=== PATIENT | male | born 1960 | race Caucasian/White ===

== ENCOUNTER 2022-07-07 07:48 | Outpatient (CLI) | payer OTHER, SELFPAY ==
[2022-07-07 08:20] LABS: Basophils Percent Auto 0.8 % (0.2-1.2); Eosinophils Absolute Auto 0.1 K/mm3 (0-0.3); Eosinophils Percent Auto 1.8 % (0-4.4); Hematocrit 42.8 % (42.0-52.0); Immature Granulocyte Absolute 0.03 K/mm3 (0.00-0.031); Immature Granulocyte Percent A 0.6 % (0-0.5); Lymphocytes Absolute Auto 1.43 K/mm3 (0.9-3.2); Lymphocytes Percent Auto 28.7 % (18.3-44.2); Mean Corpuscular HGB Conc 32.7 g/dl (32-36); Mean Corpuscular Volume 97.9 fl (80-100); Monocytes Absolute Auto 0.6 K/mm3 (0.1-0.6); Neutrophils Absolute Auto 2.8 K/mm3 (1.3-6.7); Neutrophils Percent Auto 56.1 % (45.5-73.1); Platelet Count Result 253 k/mm3 (150-375); Red Blood Count 4.37 M/mm3 (4.6-6.20); Red Cell Distribution Width 13.6 % (11.5-14.5)
[2022-07-07 08:33] LABS: Alanine Aminotransferase 22 U/L (6-50); Albumin Level 4.1 g/dL (3.5-5.1); Alkaline Phosphatase 65 U/L (38-126); Anion Gap 6 mmol/L (8-16); Aspartate Amino Transferase 22 U/L (17-59); Bilirubin,Total 0.4 mg/dL (0.2-1.3); Blood Urea Nitrogen 21 mg/dL (9-20); Calcium 8.4 mg/dL (8.4-10.2); Carbon Dioxide 26 mmol/L (22-30); Chloride 105 mmol/L (98-107); Cholesterol 175 mg/dL (0-200); Estimated Glomerular Filt Rate > 60; Glucose 87 mg/dL (65-110); HDL Direct 53 mg/dL; Magnesium 2.1 mg/dL (1.6-2.3); Potassium 4.4 mmol/L (3.4-5.0); Sodium 137 mmol/L (137-145); Triglycerides 44 mg/dL (<150)
[2022-07-07 08:44] LABS: LDL Cholesterol Direct 93 mg/dL
[2022-07-07 09:01] LABS: Prostate Specific Antigen 0.8 ng/mL (< OR = 4.0)
== END 2022-07-07 07:49 | disposition home or self-care (01) ==
PROVIDERS: PCP Internal Medicine; Visit Provider Internal Medicine
DX: K21.9 Gastro-esophageal reflux disease without esophagitis (principal); Z13.6 Encounter for screening for cardiovascular disorders; N42.9 Disorder of prostate, unspecified
CPT/HCPCS: 36415; 80053; 80061; 82607; 83735; 84153; 85025

== ENCOUNTER 2023-07-04 11:02 | Outpatient (CLI) | payer OTHER, SELFPAY ==
[2023-07-04 11:46] LABS: Basophils Percent Auto 0.8 % (0.2-1.2); Eosinophils Absolute Auto 0.1 K/mm3 (0-0.3); Eosinophils Percent Auto 1.1 % (0-4.4); Hematocrit 44.5 % (42.0-52.0); Hemoglobin 13.8 g/dL (14.0-18.0); Immature Granulocyte Absolute 0.02 K/mm3 (0.00-0.031); Immature Granulocyte Percent A 0.4 % (0-0.5); Lymphocytes Absolute Auto 1.37 K/mm3 (0.9-3.2); Lymphocytes Percent Auto 25.7 % (18.3-44.2); Mean Corpuscular Hemoglobin 29.3 pg (26-34); Mean Corpuscular Volume 94.5 fl (80-100); Mean Platelet Volume 10.2 fl (7.4-10.4); Monocytes Absolute Auto 0.6 K/mm3 (0.1-0.6); Monocytes Percent Auto 10.9 % (2.6-8.5); Neutrophils Absolute Auto 3.3 K/mm3 (1.3-6.7); Neutrophils Percent Auto 61.1 % (45.5-73.1); Platelet Count Result 296 k/mm3 (150-375); Red Blood Count 4.71 M/mm3 (4.6-6.20); Red Cell Distribution Width 14.3 % (11.5-14.5); White Blood Count 5.3 K/mm3 (4.5-10.0)
[2023-07-04 11:58] LABS: Alanine Aminotransferase 19 U/L (6-50); Albumin Level 4.1 g/dL (3.5-5.1); Alkaline Phosphatase 65 U/L (38-126); Anion Gap 6 mmol/L (4-12); Aspartate Amino Transferase 20 U/L (17-59); Bilirubin,Total 0.4 mg/dL (0.2-1.3); Blood Urea Nitrogen 19 mg/dL (9-20); Calcium 9.1 mg/dL (8.4-10.2); Carbon Dioxide 26 mmol/L (22-30); Chloride 105 mmol/L (98-107); Cholesterol 189 mg/dL (0-200); Estimated Glomerular Filt Rate > 60; Glucose 97 mg/dL (65-110); HDL Direct 54 mg/dL; Magnesium 2.2 mg/dL (1.6-2.3); Potassium 4.4 mmol/L (3.4-5.0); Sodium 137 mmol/L (137-145); Triglycerides 71 mg/dL (<150)
[2023-07-04 12:09] LABS: LDL Cholesterol Direct 104 mg/dL
[2023-07-04 12:24] LABS: Prostate Specific Antigen 0.9 ng/mL (< OR = 4.0)
[2023-07-04 12:34] LABS: Free T4 Free Thyroxine 1.22 ng/mL (0.78-2.19)
== END 2023-07-04 11:03 | disposition home or self-care (01) ==
LOC: ANHLAB 11:04
PROVIDERS: PCP Internal Medicine; Visit Provider Internal Medicine
DX: N42.9 Disorder of prostate, unspecified (principal); K21.9 Gastro-esophageal reflux disease without esophagitis; I10 Essential (primary) hypertension
CPT/HCPCS: 36415; 80053; 80061; 82607; 83735; 84153; 84439; 84443; 85025

== ENCOUNTER 2024-07-11 08:36 | Outpatient (CLI) | payer MEDICARE, SELFPAY ==
--- OUTSIDE RECORDS SUMMARY | 2024-07-11 09:13 | XMS_ITS | Continuity of Care Document ---
Author Organization [facility] Address [address] [place] [address] Phone Care Team Providers Care Asset Protection Officer Name Role Phone Honorio Lowe Unavailable Unavailable Procedures Procedure Date Eye Exam & Treatment Refraction Progressive Lens, Hi Index Frames Deluxe Tint Photochromatic, Hi Index 0 Medical Tax Office/outpatient Visit, Est Visual Field Examination(s) Eye Exam & Treatment Refraction Optic Nerve Topography Optic Nerve Topography Office/outpatient Visit, Est Fundus Photography W/ Report Visual Field Examination(s) Eye Exam & Treatment Refraction Advance Directives Directive Yes / No Effective Date File Name No Information Encounters Encounter Description Practice Location Reason(s) For Visit Diagnoses Date Provider Providers Copied on Encounter [facility], [id number] [place] [address] [address], [place], [place], [id number], [place] tel:[phone] SEC [facility] No Information 0 Mynor Olmedo. [address] , [address], [place], [address], [place]. tel:[phone] [facility], [address], [place], [place], [id number], [place] tel:[phone] SEC [facility] No Information Al-2 3-201 0 [facility] . [address], [address], [place], [place], [id number], [place]. tel:[phone] Referring Provider: Honorio Russell [address] [place], [place] [address]ate Center [address], [place], [place], [facility]. tel:[phone] sulting Provider: Hosea Valverde, [address] [place], [place] [address]ate Ctr, [place], [place], [facility]. tel:[phone] Office/outpat ient Visit, [facility], [address] [place] [address] [address], [place], [place], [id number], [place] tel:[phone] SEC [facility] No Information Bora-1 0-200 9 Mynor Olmedo. [address] [place] [address] , [address], [place], [place], [facility], [place]. tel:[phone] [facility], [address] [place] [address] [address], [place], [place], [id number], [place] tel:[phone] [facility] [place] No Information Dec-0 4-200 8 Mynor Olmedo. [address] [place] [address] , [address], [place], [place], [facility], [place]. tel:[phone] Referring Provider: Honorio Russell, [address] [place], [place] [address], [place], [place], [facility]. tel:[phone] [facility], [address] [place] [address] [address], [place], [place], [id number], [place] tel:[phone] [facility] No Information Bora-0 9-200 8 Mynor Olmedo. [address] [place] [address] , [address], [place], [place], [facility], [place]. tel:[phone] [facility], [address] [place] [address] [address], [place], [place], [id number], [place] tel:[phone] [facility] [place] No Information Apr-1 1-200 8 Mynor Olmedo. [facility] , [address], [place], [place], [facility], . tel:[phone] Referring Provider: Mason [facility] [address], [place], [facility]. tel:[phone] Office/outpat ient Visit, [facility], [address] [place] [address] [address], [place], [place], [id number], tel:[phone] [facility] [place] No Information Dec-0 3-200 7 Mynor Olmedo. [address] [place], [place] [address]ate Carley Shanks, [address], [place], [place], [facility], . tel:[phone] Referring Provider: Honor[facility] Russell, [facility] [address], [place], [place], [facility]. tel:[phone] [facility], [address] [place] [address] [address], [place], [place], [address] [place] [address], tel:[phone] [facility] [place] No Information Mar-2 9-200 7 Mynor Olmedo. [facility] [address], [place], [facility], . tel:[phone] Referring Provider: [facility] Russell [facility] [address], [place], [facility]. tel:[phone] [facility], [address] [place] [address] [address], [place], [place], [id number], tel:[phone] [facility] No Information Mar-0 9-200 7 Mynor Olmedo. [facility] [address], [place], [place], [facility], . tel:[phone] Family History Family Member Type Diagnosis Age At Onset No Information Payers Payer name Insurance type Covered alliance party ID Authoriza tion(s) No Information Social History Type Description Quantity Date Captured Comments Sex Male Smoking Status No Information Chief Complaint And Reason For Visit No Information Reason For Referral Reason For Referral No Information History Of Present Illness Encounter Date Complaint History Of Prese nt Illness No Information Functional Status Date Functional Assessmen t No Information Instructions Date Instruction Additional Infor mation No Information Assessments Type Assessment Date No Information Patient Care Teams Name Effective Dates (start - stop) Status Members No Information
--- OUTSIDE RECORDS SUMMARY | 2024-07-11 09:13 | XMS_ITS | Data Portability ---
Author Organization [place] - [facility], Main Office Address [address] [place] [address] Assessment No assessment recorded. Plan of Treatment Reminders Order Date Submit Date Provider Last Modified By Organization Details Last Modified Time Details Appointments None recorded. Lab PSA, serum or plasma 025 025 [facility], [address], [address], 5 10:32:55 vitamin B12, serum 025 025 [facility], [address], [address], 5 10:31:54 magnesium , serum or plasma 025 025 [facility], [address], [address], 5 10:31:54 CBC w/ auto diff 025 025 [facility], [address], [address], 5 10:32:58 T4, free, serum 025 025 [facility], [address], [address], 5 10:32:54 TSH, serum or plasma 025 025 [facility], [address], [address], 5 10:31:53 lipid panel, serum 025 025 [facility], [address], [address], 5 10:32:58 CMP, serum or plasma 025 025 [facility], [address], [address], 5 10:31:55 PSA, serum or plasma 024 024 [id number] [facility], [address], [address], 4 16:04:02 magnesium , serum or plasma 024 024 [id number] [facility], [address], [address], 4 16:04:02 vitamin B12, serum 024 024 [facility], [address], [address], 4 16:16:41 CBC w/ auto diff 024 024 [facility], [address], [address], 4 16:16:41 CMP, serum or plasma 024 024 [facility], [address], [address], 4 16:08:28 lipid panel, serum 024 024 [facility], [address], [address], 4 16:16:41 TSH, serum or plasma 024 024 [facility], [address], [address], 4 16:16:41 T4, free, serum 024 024 [id number] [facility], [address], [address], 4 16:04:01 lipid panel, serum 023 023 [facility], [address], [address], 3 10:57:01 CMP, serum or plasma 023 023 [facility], [address], [address], 3 13:48:13 PSA, serum or plasma 023 023 [id number] [facility], [address], [address], 3 17:43:50 CBC w/ auto diff 023 023 [id number] [facility], [facility] [address], [address], 3 17:43:50 vitamin B12, serum 023 023 [id number] [facility], [address], [address], 3 17:43:50 magnesium , serum or plasma 023 023 [id number] [facility], [facility] [address], [address], 17:43:50 Referral None recorded. Procedures None recorded. Surgeries None recorded. Imaging None recorded. Medication Orders None recorded. Patient TargetsNo targets recorded. Patient Instructions Encounter Date Encounter Id Patient Instructions Last Modified By Organization Details Last Modified Time 07/05/2022 [id number] risk assessment* Not availabl e 07/05/2022 10:55:56 INFLUENZA VACCIN E TD/TDAP Recommended today, patient declined Ordered P atient will get at local pharmacy/health department PNEUMONIA VACCINE Ordered Recommende d today, patient declined Patient will get at local pharmacy/health department Recomme nded at age 64 SHINGLES Ordered Recommende d today, patient declined Patient will get at local pharmacy/health department PSA Ordered No screening necessary patient is up to date COLORECTAL SCREENING DEPRESSION SCREENING Negative BMI Overweight continue your current weight loss efforts try to lose 5% of your body weight try to lose 10% of your body weight NUTRITION Heart Healthy Diet PHYSICAL ACTIVITY Need more exercise/physical activity ALCOHOL USE No alcohol use Occasional/Soc ial Use TOBACCO USE non smoker LUNG CANCER SCREENING Non Smoker-not indicated SEXUALLY ACTIVE HEPATITIS C SCREENING Not indicated GLUCOSE SCREENING LIPID SCREENING [email or web address] Not available 07/05/2022 10:43:47 Wellness visit follow-up in risk assessment stable. Follow-up for GERD clinically doing well. Will check blood work consisting of CBC, CMP, lipid, B12, magnesium and PSA. Continue on current Rx recheck back one year [email or web address] Not available 07/05/2022 10:55:13 07/04/2023 [id number] Follow-up hypertension, GERD, anterior ventral hernia of the abdominal wall and obesity class one. All clinically stable. Will continue on current Rx check blood work consisting of CBC, CMP, lipid, thyroid and PSA. recheck blood pressure in one week. May need add medication help control this. Continue on current Rx follow-up in six months. Next Appt: 6 Months Approximate Date: 12/31/2023 Portions of the record may have been created with voice recognition software. Occasional wrong-word or s ound-a-like substitutions may have occurred due to the inherent limitations of voice recognition software. Read the chart carefully and recognize, using context, where substitutions have occurred. [email or web address] Not available 07/04/2023 10:38:49 07/09/2024 [id number] Follow-up essential hypertension, GERD, ventral hernia and obesity class one all clinically stable. Continue on current medications check blood work in the form of CBC, CMP, lipid, thyroid, B12, magnesium level and PSA. Continue on current Rx follow-up in six months Follow Up: 6 Months Approximate Date: 01/05/2025 Portions of record are template driven. When necessary additional context will be provided. Additionally some portions have been created with voice recognition software. Occasional wrong-word or s ound-a-like substitutions may have occurred due to the inherent limitations of voice recognition software. Read the chart carefully and recognize, using context, where substitutions may have occurred. Created: Gama George M.D. 07.09.2024 09:31 AM [email or web address] Not available 07/09/2024 10:31:37 Reason for Referral None Reported. Results Created Date Observation Date Name Description Value Unit Range Abnormal Flag Note LastModifiedBy Organization Detail LastModifiedTime 01/26/2001/25/2023 COLOG UARD cologuard result reportable NEGATI VE negati ve normal NEGAT RADHA TEST RESUL T. A negat radha Colog uard resul t indic ates a low likel ihood that a color ectal cance r (CRC) or advan aline adeno ma (nora omato us polyp s with more advan aline pre-m align ant featu res) is prese nt. The chanc e that a perso n with a negat radha Colog uard test has a color ectal cance r is less than 1 in 1500 (nega tive predi ctive value >99.9 %) or has an advan aline adeno ma is less than 5.3% (nega tive predi ctive value 94.7% ). These data are based on a prosp ectiv e cross -sect ional study of 10,00 0 indiv idual s at [facility] risk for color ectal cance r who were scree salvatore with both Colog uard and colon oscop y. (Cary Abdalla et al, N Engl J Med 2014; 370(1 4):12 86-12 97) The indu l value (refe rence range ) for this assay is negat radha. COLOG UARD RE-SC REENI NG RECOM MENDA TION: Perio dic color ectal cance r scree jas is an impor tant part of preve ntive healt hcare for asymp tomat ic indiv idual s at [facility] risk for color ectal cance r. Follo wing a negat radha Colog uard resul t, the Ameri can Cance r Socie ty and U.S. Multi -Soci ety Task Force scree jas guide lines recom mend a Colog uard re-sc reeni ng inter alek of 3 years . Refer ences : Ameri can Cance r Socie ty Guide line for Color ectal Cance r Scree jas: https ://oswaldo brice.can cer.o rg/ca ncer/ colon -rect al-ca ncer/ detec tion- diagn osis- stagi ng/ac s-rec ommen datio ns.ht ml.; Spencer ZULETA, Aubrie POLANCO, Jerson MUÑOZ, Color ectal Cance r Scree jas: Recom menda tions for Physi cians and Patie nts from the U.S. Multi -Soci ety Task Force on Color ectal Cance r Scree jas , Am Kena ortega y 2017; 112:1 016-1 030. TEST DESCR IPTIO N: [place] site algor ithmi c bhavya sis of stool DNA-b iosachin bustos with hemog lobin immun oassa y. Quant itati ve value s of indiv idual bioma rkers are not repor table and are not assoc iated with indiv idual bioma rker resul t refer ence range s. Colog uard is inten ded for color ectal cance r scree jas of adult s of eithe r sex, 45 years or older , who are at [facility] for color ectal cance r (CRC) . Colog uard has been appro arielle for use by the U.S. FDA. The perfo rmanc e of Colog uard was estab lishe d in a cross secti onal study of [facility] adult s aged 50-84 . Colog uard perfo rmanc e in patie nts ages 45 to 49 years was estim ated by sub-g roup bhavya sis of near- age group s. Colon oscop ies perfo rmed for a posit radha resul t may find as the most clini quentin signi fican t lesio n: color ectal cance r [4.0% ], advan aline adeno ma (incl uding sessi le mellissa nayeli polyp s great er than or equal to 1cm diame ter) [20%] or non- advan aline adeno ma [31%] ; or no color ectal neopl sammy [45%] . These estim ates are deriv ed from a prosp ectiv e cross -sect ional scree jas study of 0 indiv idual s at [facility] risk for color ectal cance r who were scree salvatore with both Colog uard and colon oscop y. (Cary Abdalla et al, N Engl J Med 2014; 370(1 4):12 86-12 97.) Colog uard may produ ce a false negat radha or false posit radha resul t (no color ectal cance r or preca ncero us polyp prese nt at colon oscop y follo w up). A negat radha Colog uard test resul t does not guara ntee the absen ce of CRC or advan aline adeno ma (pre- cance r). The curre nt Colog uard scree jas inter alek is every 3 years . (Amer ican Cance r Socie ty and U.S. Multi -Soci ety Task Force ). Colog uard perfo rmanc e data in a 0 patie nt pivot al study using colon oscop y as the refer ence metho d can be acces sed at the follo wing locat ion: www.e xactl abs.c om/re christofer . Addit ional descr iptio n of the Colog uard test proce ss, warni ngs and preca ution s can be found at www.c darnell gama.c om. Not Available [facility] (Cologuard Orders Only) [address], [place], [address], 02/01/2023 09:59:04 Result Notes None recorded. Problems Name Problem SNOMED Code Status Onset Date Resolution Date Notes Provider Name and Address Organization Details Recorded Time Gastroesop hageal reflux disease 837329307 Active Not Available [facility] 3 14:49:34 Dysphagia 42589796 Active Not Available [facility] 3 14:49:34 Hernia of anterior abdominal wall 181973595 Active 2021 Not Available [facility] 3 14:49:34 Lichen planus 4065982 Active Not Available [facility] 3 14:49:34 Essential hypertensi on 79219406 Active 2023 Gama George MD [address] [employer], [employer] [address] [place] [address], [address] , [employer] 4 10:33:06 Obese class I 3920903083070 07 Active 2023 Gama George MD [address] [employer], [employer] [address] [place] [address], [address] , [employer] 4 10:37:56 Disorder of prostate 10641104 Active 2023 Gama George MD [address] [employer], [employer] [address] [place] [address], [address] , [employer] 4 10:38:39 Problem Notes None recorded. Medical Equipment None Reported. Allergies Allergen ID Allergen Name Allergen Category Reaction Reaction Severity Criticality Documentation Date Start Date Code Code System Note Provider Name and Address Organization Details Recorded Time 57439 Product containin g penicilli n (product) medicatio n Not available Not available Not available 06/02/2022 36854 8001 SNOMED Not Available [facility] 3 14:54:00 Medications Name Sig Start Date Stop Date Status Note LastModified by Organization Details LastModified Time losartan 50 mg tablet TAKE 2 TABLET BY MOUTH EVERY DAY 08/17 completed Not Available Not Available Not Available Zithromax Z-Michael 250 mg tablet TAKE 2 TABLETS (500 MG) BY ORAL ROUTE ONCE DAILY FOR 1 DAY THEN 1 TABLET (250 MG) BY ORAL ROUTE ONCE DAILY FOR 4 DAYS 08/09 completed Not Available Not Available Not Available chlorthalido ne 25 mg tablet TAKE 1 TABLET BY MOUTH EVERY DAY active Not Available Not Available No t Available omeprazole 40 mg capsule,ibis yed release TAKE 1 CAPSULE BY MOUTH DAILY active Not Available Not Available No t Available Zantac 150 mg tablet Take 1 tablet every day by oral route. 08/09 completed Not Available Not Available Not Available hydrocortiso ne 1 % topical cream qid prn 2013 active Not Available Not Available Not Avai lable losartan 100 mg tablet TAKE 1 TABLET BY MOUTH EVERY DAY active Not Available Not Available No t Available Shingrix (PF) 50 mcg/0.5 mL intramuscula r suspension, kit ADM 0.5ML IM UTD 07/16 completed Not Available Not Available Not Available Afluria Qd 2018- (36 mos up)(PF)60 mcg (15 mcg x4)/0.5 mL IM syringe ADM 0.5ML IM UTD 07/16 completed Not Available Not Available Not Available Vitals Date Recorded Body mass index (BMI) Body height Heart rate Respiratory rate Body temperature Body weight Systolic blood pressure Diastolic blood pressure Provider Name and Address Organization Details Last Updated DateTime 1 30.3 kg/m2 167.64 cm 61 /min 12 /min 97.3 [degF] 65430.3 7 g 138 mm[Hg] 90 mm[Hg] Not Available [facility] 3 14:46:12 Date Recorded Body mass index (BMI) Body height Oxygen saturation Oxygen saturation in Arterial blood by Pulse oximetry Heart rate Respiratory rate Body temperature Body weight Systolic blood pressure Diastolic blood pressure Provider Name and Address Organization Details Last Updated DateTime 2 31 kg/m2 167.64 cm 98 % 98 % 66 /min 12 /min 97.8 [degF] 77502.7 4 g 130 mm[Hg] 76 mm[Hg] Not Available [facility] 3 14:46:12 Date Recorded Body height Body mass index (BMI) Body weight Heart rate Body temperature Oxygen saturation Oxygen saturation in Arterial blood by Pulse oximetry Systolic blood pressure Diastolic blood pressure Provider Name and Address Organization Details Last Updated DateTime 3 167.64 cm 30.8 kg/m2 72603.1 4 g 63 /min 97 [degF] 99 % 99 % 122 mm[Hg] 78 mm[Hg] Carly Singh [employer] [facility] [employer] 3 10:27:47 Date Recorded Body height Body mass index (BMI) Body weight Heart rate Oxygen saturation Oxygen saturation in Arterial blood by Pulse oximetry Systolic blood pressure Diastolic blood pressure Provider Name and Address Organization Details Last Updated DateTime 4 167.64 cm 31.6 kg/m2 43918.1 g 66 /min 98 % 98 % 146 mm[Hg] 102 mm[Hg] Angelika George [facility] [employer] [facility] [employer] [facility] 4 10:31:33 Date Recorded Heart rate Systolic blood pressure Diastolic blood pressure Provider Name and Address Organization Details Last Updated DateTime 09/07/2023 77 /min 130 mm[Hg] 82 mm[Hg] [facility] [employer] [facility] Anevia [facility] 09/07/2023 10:39:02 Date Recorded Heart rate Systolic blood pressure Diastolic blood pressure Provider Name and Address Organization Details Last Updated DateTime 10/19/2023 67 /min 126 mm[Hg] 82 mm[Hg] [facility] [employer] [facility] Anevia [facility] 10/19/2023 11:40:56 Date Recorded Body height Body mass index (BMI) Body weight Heart rate Body temperature Oxygen saturation Oxygen saturation in Arterial blood by Pulse oximetry Systolic blood pressure Diastolic blood pressure Provider Name and Address Organization Details Last Updated DateTime 5 167.64 cm 31.2 kg/m2 85035.3 3 g 57 /min 97 [degF] 97 % 97 % 138 mm[Hg] 82 mm[Hg] Carly Mcdonough [employer] [facility] [employer] [facility] 5 10:26:42 Social History None recorded. Functional Status None recorded. Mental Status None recorded. Family History Nothing Reported Notes:Mother 49 from pn eumonia and had chronic respiratory infections. Father 76 from refractory anemia Two sisters both living and in good health No brothers Medical History Condition Response NERVE DISEASE N BLINDNESS N RHEUMATIC FEVER N KIDNEY STONES N BLADDER PROBLEMS N MRSA N OTHER # 1 N POLIO N LUNG DISEASE/DISORDER N HISTORY OF DRUG ABUSE N RADIATION / CHEMOTHERAPY N COPD N Other # 2 N BLOOD DISEASES N EAR OR HEARING PROBLEMS N MUMPS N SHINGLES N DEPRESSION (INCLUDING POST ) N BOWEL PROBLEMS N FAILED BACK SYNDROME N STROKE/TIA N ULCERS N BENIGN PROSTATIC HYPERPLASIA N MEASLES N HYPOTENSION N MYOCARDIAL INFARCTION N OBESITY N GERD/NAUSEA N ANEURYSM N URINARY/BLADDER/KIDNEY PROBLEMS N CORONARY ARTERY DISEASE (CAD) N Do you have Advance directive? N ADDICTION CONCERNS N Impotence N ENDOMETRIOSIS N USE OF BLOOD THINNERS N SKIN PROBLEMS N GASTROINTESTINAL DISORDER N PERIPHERAL VASCULAR DISEASE N MUSCLE,JOINT OR BONE PROBLEMS N GASTROINTESTINAL BLEEDING N BLOOD CLOTS N ASTHMA N CATARACTS N Abdominal Pain N ERECTILE DYSFUNCTION N ARTERIAL INSUFFICIENCY N VARICOSITIES N GI PROBLEMS N Low Testosterone N INFERTILITY N AIDS/HIV N CHEMOTHERAPY / RADIATION N LIVER DISEASE N MALE HYPOGONADISM N HYPERTENSION N Deficiency N TOURETTE'S N ANXIETY DISORDER N BLOOD TRANSFUSION N ANEMIA/BLOOD DISORDER N CHRONIC EAR INFECTIONS N TUBERCULOSIS N GLAUCOMA N FOOT PROBLEM N DIVERTICULITIS N SLEEP APNEA N CHICKENPOX N ALLERGIES/HAYFEVER N BACK INJECTIONS N INFECTIOUS DISEASE N PROSTATE N HEART ARRHYTHMIA N ESRD N INSOMNIA N HIGH CHOLESTEROL / HYPERLIPIDEMIA N EYE PROBLEMS N HYPERTHYROIDISM N PVD N EDEMA N CHRONIC PAIN SYNDROME N HYPOTHYROIDISM N CAROTID BLOCKAGE N CONSTIPATION N BACK / NECK PROBLEMS N HAVE YOU BEEN HOSPITALIZED OR SEEN IN [facility] IN THE PAST YEAR ? N ATHEROSCLEROSIS N BREAST PROBLEMS N DIALYSIS N POLYCYSTIC OVARIES N ECZEMA N OSTEOPOROSIS N ARTHRITIS N NO SIGNIFICANT PAST MEDICAL HISTORY N APPENDICITIS N DIABETES, TYPE N BAD TEETH N VON WILLIBRAND'S DISEASE N ENT N HEARTBURN / REFLUX N GI N AUTISM SPECTRUM DISORDER (ASD) N POST LAMINECTOMY SYNDROME N HEPATITIS / LIVER DISEASE N GOUT N SLEEP DISORDER N ALZHEIMER'S DISEASE N Brain Problems N DEMENTIA N HERPES N SEIZURES/EPILEPSY N HEADACHES/MIGRAINES N VASCULAR DISEASE N PACEMAKER N DIZZINESS N HEART DISEASE/HEART PROBLEMS N KIDNEY DISEASE N MULTIPLE SCLEROSIS N NEUROPSYCHOLOGICAL N CANCER: SPECIFY N CARDIAC ARRHYTHMIA N ATRIAL FIBRILLATION N Gall Stones N PULMONARY EMBOLISM N AUTOIMMUNE DISEASE N Immunizations Vaccine Type Date Status Note Provider Nam e and Address Organization Details Recorded Time Tdap 09/14/2023 completed CARMELLA Payne, [place] - [facility] [employer] 09/14/2023 15:42:06 COVID-19, mRNA, LNP-S, PF, 30 mcg/0.3 mL dose 02/07/2021 completed Not Available [facility] 14:53:48 COVID-19, mRNA, LNP-S, PF, 30 mcg/0.3 mL dose 07/09/2020 completed Not Available [facility] 14:53:48 COVID-19, mRNA, LNP-S, PF, 30 mcg/0.3 mL dose 06/25/2020 completed Not Available [facility] 14:53:48 Tdap 08/15/2013 completed Not Available [facility] 06/02/2022 14:53:48 Past Encounters Encounter ID Performer Location Encounter Start Date Encounter Closed Date Diagnosis/Indication Diagnosis SNOMED-CT Code Diagnosis ICD10 Code Diagnosis Note [id number] [facility] [address] [address] 07/16/2020 00:00:00 07/16/2020 10:33:55 [id number] [facility] [address] [address] 07/22/2021 00:00:00 07/22/2021 10:29:57 [id number] Gama George MD [facility] Internal Med [facility] [address] [address] 07/05/2022 10:26:07 07/05/2022 11:02:49 Adult health examination 584449386 Z00.00 Depression screening 171 025380 Z13.31 Gastroesop hageal reflux disease 903695266 K21.9 Screening for cardiovascular system disease 119834666 Z13.6 Disorder of prostate 302 49595 N42.9 [id number] Gama George MD [facility] Med [address] [address] 07/04/2023 10:20:04 07/04/2023 10:45:54 Essential hypertension 70343023 I10 Gastroesop hageal reflux disease 462870554 K21.9 Hernia of anterior abdominal wall 002493343 K43.9 Obese class I 6570177722 32430 E66.9 Disorder of prostate 302 74393 N42.9 [id number] Gama George MD [facility] [address] [address] 07/09/2024 10:24:21 07/09/2024 10:57:11 Essential hypertension 57308312 I10 Gastroesop hageal reflux disease 513057294 K21.9 Hernia of anterior abdominal wall 883047027 K43.9 Obese class I 2972676826 49376 E66.9 Disorder of prostate 302 24834 N42.9 Health Concerns Section Related Observation LastModified by Organization Detai ls LastModified Time None Recorded Concern Status LastModified by Organization Details LastModified Time None Recorded Advance Directives Directive None Recorded Payers Encounter Date Sequence Insurance Name Policy Number Policy Renner Covered Member ID Renner Member ID Guarantor Name 07/05/2022 1 [employer] - CHOICE (POS II) [id number] Adonis Escudero Geoffrey [id number] Adonis Kena Geoffrey 07/04/2023 1 [employer] - CHOICE (POS II) [id number] Adonis Hale [id number] Adonis Hale 07/09/2024 1 [employer] (MEDICARE REPLACEMENT PPO) [id number] Adonis Hale [id number] Adonis Hale Notes Date Note Type Note Provider Name and Address Organization Details Recorded Time 3 text/html Patient Name: Adonis HaleDate Of Service: Tuesday ( 07.05.2022 ): 1960 Age: 62 Vital Signs:Blood Pressure: Sitting Rt. Arm 122/78Pulse: Sitting 63 /min and RegularRespirations: 12Height 66 in or 1.7 mWeight 191 lb or 86.6 kgBMI 30.8Temperature: 97 F or 36.1 CPulse Oximetry: 99 % at rest on no oxygen Chief Complaint: Addressed in HPI Problems or conditions discussed in the HPI were the only ones reviewed during the encounter.Only social and family history addressed in the HPI were reviewed during this encounter. Attendant(s): None Constitutional and Systemic Symptoms: none Medication Reconciliation: from medication list. History of Present Illness In for a well patient check up. Last well patient evaluation was approximately one year. No interval complaints of any new major medical problems. No hx of any chest pain, shortness of breath, nausea, vomiting, diarrhea or constitutional symptoms.PSA orderedColonoscopy or Cologuard: not dueImmunizations Up To Date or refuses to takeNo Significant Change In Family HxFall Risk normalDepression Score: 0Hearing normalVisual normalReviewed Smoking and Drug HistoryReviewed Immunization HistoryInstructed on importance of weight on diabetes, heart and other diseases aggravated by obesity.Instructed on importance of weight on diabetes, heart and other diseases aggravated by obesity. #1. Hx of esophageal reflux currently stable. Hx of Complications: none The severity, duration and intensity of symptoms have improved. Frequency: most meals Treatment consists medications taken on intermittent basis. Current therapy includes Omeprazole. There has been no nausea, eructation, vomiting, hematemesis, dysphagia, velopharyngeal insufficiency and odynophagia. No change in he frequency or intensity of symptoms. Has had no melena. Has had no hematemesis. Discuss the possibility of trying to reduce the frequency of the use of any PPI inhibitors or H2 antagonist to see if symptoms can be controlled with last intensive therapyMedication List Reviewed and Reconciled 07/05/2022Omeprazole 40 MG (CAPSULE, DELAYED REL PELLETS - ORAL) One DailyADRs List Reviewed 07/05/2022enicillin Unknown Reaction - Told By MohterVaccination and Dhdlqkthgtde0123-96 Covid Booster Qvomnt9051-59 Covid Eggspc4834-18 TdapSurgical HistoryEGD Dilatation, Esophageal Dilatation, Fracture JawPreventative Testing Confirmed by Our Zowtpup5107/23/2021 PSA10/17/2019 COLOGUARD ALBUMIN 4.1 G/DL02/15/2018 UPPER EBBJYCELS46/04/2010 COLONOSCOPY 11/06/2019Social HistoryMarriedDoes not smokeDoes not drinkSteelworkerFamily HistoryMother 49 from pneumonia and had chronic respiratory infections.Father 76 from refractory anemiaTwo sisters both living and in good healthNo brothers Gama George MD [facility] [facility], [facility] [address], [place], [address], [facility] [employer] 07/05/2022 10:56:02 4 text/html Patient Name: Adonis Farias Of Service: Tuesday ( 07.04.2023 ): 1960 Age: 63 There has been approximately a 5 lb weight gain since 07/05/2022. This represents approximately a 2.6% change in weight. Weight change attributable to lifestyle changes. Vital Signs:Blood Pressure: Sitting Rt. Arm 146/102Pulse: Sitting 66 /min and RegularRespiratory Rate: 12Height 66 in or 1.7 mWeight 196 lb or 88.9 kgBMI 31.6Pulse Oximetry: 98 % at rest on no oxygen Chief Complaint: Addressed in HPI Problems or conditions discussed in the HPI were the only ones reviewed during the encounter.Only social and family history addressed in the HPI were reviewed during this encounter. Attendant(s): NoneConstitutional and Systemic Symptoms:none Medication Reconciliation: from medication list. History of Present Illness #1. Essential Hypertension: Stage: Stage I Interval Neurological Complaints no headaches, dizziness, weakness, visual changes, ataxia, aphasia and apraxia. No shortness of breath, orthopnea or cardiovascular symptoms. No other symptoms related to end organ damage. Pressure has been under excellent control. Currently elevated. No other end organ symptoms or findings. Therapy reviewed regarding management of hypertension and includes salt restriction. #2. Hx of esophageal reflux currently stable. Hx of Complications: none The severity, duration and intensity of symptoms have remained the same. Frequency: most meals Treatment consists medications taken on a regular basis. Current therapy includes no medication. There has been no nausea, eructation, vomiting and hematemesis. No change in he frequency or intensity of symptoms. Has had no melena. Has had no . Discussed use of H2 antagonists and the possibility of trying to reduce the frequency of the use of any PPI inhibitors and try H2 antagonists to see if symptoms can be controlled with lease intensive therapy since a number of complications are associated with chronic prolonged use of PPI inhibitors. #3. Hx of obesity. Currently Class 1 Obesity BMI 30-34.99. Has tried numerous dietary support and supplements with no benefit. Instructed on the health consequences of the obese status particularly cancer - diabetes and heart disease. Discussed new modalities of weight loss including GLP-1 medications that are used to treat diabetes. Potential candidate for bariatric surgery: No. Wishes to be evaluated by Dietary: No and was offered to be evaluated and instructed by library assistant on weight loss diet. 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 This represents approximately a 1.5% change in weight. Weight change attributable to lifestyle changes. Vital Signs:Blood Pressure: Sitting Rt. Arm 138/82Pulse: Sitting 57 /min and RegularRespiratory Rate: 16Height 66 in or 1.7 mWeight 193 lb or 87.5 kgBMI 31.1Temperature: 97 F or 36.1 CPulse Oximetry: 97 % at rest on no oxygen Chief Complaint: Addressed in HPI Problems or conditions discussed in the HPI were the only ones reviewed during the encounter.Only social and family history addressed in the HPI were reviewed during this encounter. Attendant(s): NoneConstitutional and Systemic Symptoms:none Medication Reconciliation: from medication list. History of Present Illness #1. Essential Hypertension: Stage: Stage I Interval Neurological Complaints no headaches, dizziness, weakness, visual changes, ataxia, aphasia and apraxia. No shortness of breath, orthopnea or cardiovascular symptoms. No other symptoms related to end organ damage. Pressure has been under excellent control. Currently normal. No other end organ symptoms or findings. Therapy reviewed regarding management of hypertension and includes salt restriction and Chlorthalidone and Losartan Potassium. #2. Hx of esophageal reflux currently stable. Hx of Complications: none The severity, duration and intensity of symptoms have improved. Frequency: most meals Treatment consists medications taken on intermittent basis. Current therapy includes Omeprazole. There has been no nausea, eructation, vomiting, hematemesis, dysphagia, velopharyngeal insufficiency and odynophagia. No change in he frequency or intensity of symptoms. Has had no melena. Has had no . Discussed use of H2 antagonists NA. #3. Hx of the ventral hernia doing well. No interval c/o of any abdominal pain or symptoms related to obstruction. Fully reducible and no signs of strangulation or incarceration. #4. Hx of obesity. Currently Class 1 Obesity BMI 30-34.99. Has tried numerous dietary support and supplements with no benefit. Instructed on the health consequences of the obese status particularly cancer - diabetes and heart disease. Discussed other modalities of weight loss no . Potential candidate for bariatric surgery: No. Wishes to be evaluated by Dietary: No and was offered to be evaluated and instructed by library assistant on weight loss diet. Active Medication ListLosartan Potassium 100 MG TABLET One DailyOmeprazole 40 MG (CAPSULE, DELAYED REL PELLETS - ORAL) One DailyChlorthalidone 25 MG TABLET One Daily Adverse Drug Reactions ReviewedPenicillin Unknown Reaction - Told By Ginny Vaccination and Immunization( ) 2023- TDAP( ) 2020- COVID PFIZER(X) 2020- COVID BOOSTER PFIZER Surgical Shiyzeg5618-71 EGD Mnmxdymldi2848-02 Esophageal Fyutbcvure3188-21 Fracture Jaw Preventative Testing( ) 04/27/2024 Ophthalmology( ) 07/04/2023 PSA 0.9 07/03/2025( ) 01/25/2023 Cologuard 01/25/2026( ) 08/15/2019 Albumin 4.1 G/DL N(X) 02/15/2018 Upper Endoscopy 02/16/2020 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
[2024-07-11 09:47] LABS: Basophils Absolute Auto 0.1 K/mm3 (0.0-0.1); Basophils Percent Auto 1.1 % (0.2-1.2); Eosinophils Absolute Auto 0.1 K/mm3 (0-0.3); Eosinophils Percent Auto 2.1 % (0-4.4); Hematocrit 42.9 % (42.0-52.0); Hemoglobin 13.8 g/dL (14.0-18.0); Immature Granulocyte Absolute 0.01 K/mm3 (0.00-0.031); Immature Granulocyte Percent A 0.2 % (0-0.5); Lymphocytes Absolute Auto 1.55 K/mm3 (0.9-3.2); Lymphocytes Percent Auto 27.5 % (18.3-44.2); Mean Corpuscular HGB Conc 32.2 g/dl (32-36); Mean Corpuscular Hemoglobin 30.7 pg (26-34); Mean Corpuscular Volume 95.5 fl (80-100); Mean Platelet Volume 10.1 fl (7.4-10.4); Monocytes Absolute Auto 0.6 K/mm3 (0.1-0.6); Monocytes Percent Auto 10.5 % (2.6-8.5); Neutrophils Absolute Auto 3.3 K/mm3 (1.3-6.7); Neutrophils Percent Auto 58.6 % (45.5-73.1); Platelet Count Result 329 k/mm3 (150-375); Red Blood Count 4.49 M/mm3 (4.6-6.20); Red Cell Distribution Width 13.5 % (11.5-14.5); White Blood Count 5.6 K/mm3 (4.5-10.0)
[2024-07-11 09:58] LABS: Alanine Aminotransferase 23 U/L (6-50); Albumin Level 4.5 g/dL (3.5-5.1); Alkaline Phosphatase 64 U/L (38-126); Anion Gap 10 mmol/L (4-12); Aspartate Amino Transferase 22 U/L (17-59); Bilirubin,Total 0.4 mg/dL (0.2-1.3); Blood Urea Nitrogen 23 mg/dL (9-20); Calcium 9.3 mg/dL (8.4-10.2); Carbon Dioxide 25 mmol/L (22-30); Chloride 103 mmol/L (98-107); Cholesterol 203 mg/dL (0-200); Estimated Glomerular Filt Rate 58; Glucose 93 mg/dL (65-110); HDL Direct 56 mg/dL; Magnesium 2.1 mg/dL (1.6-2.3); Potassium 4.1 mmol/L (3.4-5.0); Sodium 138 mmol/L (137-145); Triglycerides 79 mg/dL (<150)
[2024-07-11 10:09] LABS: LDL Cholesterol Direct 104 mg/dL
[2024-07-11 10:29] LABS: Prostate Specific Antigen 0.9 ng/mL (< OR = 4.0)
== END 2024-07-11 08:37 | disposition home or self-care (01) ==
PROVIDERS: PCP Internal Medicine; Visit Provider Internal Medicine
DX: K21.9 Gastro-esophageal reflux disease without esophagitis (principal); I10 Essential (primary) hypertension; N42.9 Disorder of prostate, unspecified
CPT/HCPCS: 36415; 80053; 80061; 82607; 83735; 84153; 84439; 84443; 85025